=== PATIENT | female | born 1940 | race Caucasian/White ===

== ENCOUNTER 2023-10-26 09:02 | Inpatient (IN) | payer MEDICARE, OTHER ==
[~2023-10-26] VITALS: Ht 149.9 cm; Wt 84.4 kg
[2023-10-26] MEDS: CEFAZOLIN 2 G in IV DEXTROSE 5% 100 ML IV ONE (07:00)
[~2023-10-26 09:02] MED LIST: BUPIVACAINE/EPI PF 0.25% 10 ML VIAL IJ ONE; IV LACTATED RINGERS SOLUTION 1,000 ML IV PRN; LIDOCAINE HCL 1% 20 ML VIAL ONE
[2023-10-26] MEDS ORDERED: PROPOFOL 200 MG/20 ML BOTTLE ONE (09:35)
[2023-10-26 09:53] LABS: *BILIRUBIN,URIN NEGATIVE (NEGATIVE); *BLOOD, URINE NEGATIVE (NEGATIVE); *CLARITY,URINE CLEAR (CLEAR); *COLOR,URINE YELLOW (YELLOW); *KETONES,URINE NEGATIVE (NEGATIVE); *PROTEIN,URINE NEGATIVE (NEGATIVE); *UROBILINOGEN,URINE 0.2 E.U./dl (NORMAL); LEUKOCYTE ESTERASE ,URINE NEGATIVE (NEGATIVE); NITRITE, URINE NEGATIVE (NEGATIVE); UGLUCOSE NEGATIVE (NEGATIVE)
[2023-10-26] MEDS ORDERED: FENTANYL CITRATE 250 MCG/5 ML AMPUL ONE (10:35)
[2023-10-26] MEDS ORDERED: ROCURONIUM BROMIDE 50 MG/5 ML VIAL ONE (10:35)
[2023-10-26] MEDS ORDERED: FENTANYL CITRATE 100 MCG/2 ML AMPUL ONE (13:49)
[2023-10-26] MEDS ORDERED: ACETAMINOPHEN 325 MG TABLET ONE ×2 (13:56)
[2023-10-26] MEDS: GABAPENTIN 100 MG CAPSULE PO SCH (14:00)
[2023-10-26] MEDS: CELECOXIB 200 MG CAPSULE PO SCH (14:00)
[2023-10-26] MEDS: ACETAMINOPHEN 325 MG TABLET PO SCH (14:00)
[2023-10-26] MEDS ORDERED: LOSA1TAB36 PO (14:13)
[2023-10-26] MEDS ORDERED: ASPI-495 PO (14:13)
[2023-10-26] MEDS ORDERED: GABA300C PO (14:13)
--- NOTE | 2023-10-26 15:18 | NUR ---
Patient is alert, oriented x4, no sob, respirations are even nonlabored, skin warm and dry to touch, patient received from PACU, awake, no distress noted, daughter at bedside, dressing intact, and dry to abdomen, continue with plan of care.
--- NOTE | 2023-10-26 15:18 | NUR ---
those medications are administered in OR.
[2023-10-26 15:21] VITALS: BP 133/68; TEMP 97.8; O2SAT 99
[2023-10-26 15:30] VITALS: BP 130/65; TEMP 97.8; O2SAT 99
[2023-10-26] MEDS: MORPHINE SULFATE 4 MG/1 ML DISP.SYRIN IV PRN (15:57)
[2023-10-26 16:00] VITALS: BP 137/68; TEMP 97.6; O2SAT 96
[2023-10-26 16:06] VITALS: O2SAT 99
[2023-10-26] MEDS: IV LACTATED RINGERS SOLUTION 1,000 ML IV PRN (16:25)
[2023-10-26 17:19] VITALS: BP 128/65; TEMP 97.6; O2SAT 97
[2023-10-26 19:00] VITALS: BP 125/63; TEMP 98; O2SAT 95
[2023-10-26] MEDS ORDERED: REMEDY ESSENTIAL ZINC PASTE 113 GM TP PRN (19:00)
[2023-10-26] MEDS ORDERED: MAGNESIUM HYDROXIDE 30 ML LIQUID UDC PO PRN (19:00)
[2023-10-26] MEDS ORDERED: ZOLPIDEM 5 MG TABLET PO PRN (19:00)
[2023-10-26] MEDS ORDERED: ONDANSETRON 4 MG/2 ML VIAL IV PRN (19:00)
[2023-10-26] MEDS ORDERED: ACETAMINOPHEN 325 MG TABLET PO PRN (19:00)
[2023-10-26] MEDS ORDERED: HOME MED MISCELLANEOUS XX SCH (19:00)
[2023-10-26] MEDS: MORPHINE SULFATE 2 MG/1 ML DISP.SYRIN IV PRN (20:15)
[2023-10-27 05:08] VITALS: O2SAT 99
--- NOTE | 2023-10-27 05:47 | NUR ---
Patient slept well during the night. Morphine via IV given for pain and effective. Ice compress also provided. O2 at 2LPM via NC in place. Denies any SOB. Dressing on abdominal area intact. Other needs assessed and attended to. Safety measure maintained and call light within reached.
[2023-10-27 06:00] VITALS: BP 114/50; TEMP 97.5; O2SAT 96
[2023-10-27] MEDS: PANTOPRAZOLE SODIUM 40 MG TABLET.DR PO SCH (06:17)
[2023-10-27 07:05] LABS: BASOPHILS % (AUTO) 0.4 % (0.0-2.0); EOSINOPHILS # (AUTO) 0.1 K/uL (0.0-0.7); EOSINOPHILS % (AUTO) 0.5 % (0.0-7.0); HEMATOCRIT 39.1 % (31.2-41.9); HEMOGLOBIN 12.9 g/dL (10.9-14.3); LYMPHOCYTES # (AUTO) 2.5 K/uL (0.8-4.8); LYMPHOCYTES % (AUTO) 25.6 % (20.5-51.5); MEAN CORPUSCULAR HEMOGLOBIN 28.1 uug (24.7-32.8); MEAN CORPUSCULAR HGB CONC 33 g/dL (32.3-35.6); MEAN CORPUSCULAR VOLUME 85.3 fL (75.5-95.3); MONOCYTES # (AUTO) 0.8 K/uL (0.1-1.30); MONOCYTES % (AUTO) 8.5 % (0.0-11.0); NEUTROPHILS # (AUTO) 6.3 K/uL (1.8-8.9); PLATELET COUNT (AUTO) 224 K/uL (179-408); RED BLOOD CELL COUNT(AUTO) 4.59 MIL/uL (3.63-4.92); WHITE BLOOD COUNT (AUTO) 9.7 K/uL (3.8-11.8)
[2023-10-27 07:20] LABS: DIFFERENTIAL COMMENT 1
[2023-10-27 07:42] LABS: CALCIUM 8.3 mg/dL (8.5-10.1); CARBON DIOXIDE 28 mmol/L (21-32); CHLORIDE 100 mmol/L (98-107); CHOLESTEROL 151 mg/dL (<200); CREATININE 0.9 mg/dL (0.6-1.3); GLUCOSE 117 mg/dL (74-106); HDL CHOLESTEROL 63 mg/dL (40-60); MAGNESIUM 2.2 mg/dL (1.8-2.4); PHOSPHOROUS 4.7 mg/dL (2.5-4.9); POTASSIUM 3.8 mmol/L (3.5-5.1); SODIUM SERUM 136 mmol/L (136-145); TRIGLYCERIDES 68 MG/DL (30-150); UREA NITROGEN, BLOOD 14 mg/dL (7-18)
[2023-10-27 08:02] LABS: THYROID STIMULATING HORMONE 0.914 mIU/mL (0.358-3.740)
[2023-10-27] MEDS: LOSARTAN POTASSIUM 50 MG TABLET PO SCH (08:17)
[2023-10-27] MEDS: GABAPENTIN 300 MG CAPSULE PO SCH (08:17)
[2023-10-27] MEDS: HYDROCHLOROTHIAZIDE 12.5 MG CAPSULE PO SCH (08:17)
[2023-10-27 11:30] VITALS: BP 95/56; TEMP 97.8; O2SAT 96
[2023-10-27] MEDS ORDERED: ZOLP5TAB8 PO (11:56)
[2023-10-27] MEDS ORDERED: TRAM50TA2 PO (11:56)
[2023-10-27] MEDS ORDERED: DEXL60CA3 PO (11:56)
[2023-10-27] MEDS ORDERED: FLUT16SP16 EA NOSTRIL (11:56)
[2023-10-27] MEDS ORDERED: HYDR-894 PO (11:56)
[2023-10-27] MEDS ORDERED: CELE200C PO (11:56)
[2023-10-27] MEDS ORDERED: MEMA10TA PO (11:56)
[2023-10-27] MEDS: MEMANTINE HCL 10 MG TABLET PO SCH (14:30)
[2023-10-27 16:35] VITALS: BP 136/52; TEMP 97.9; O2SAT 97
[2023-10-27 17:23] VITALS: O2SAT 99
[2023-10-27 19:00] VITALS: BP 141/66; TEMP 98.1; O2SAT 98
--- NOTE | 2023-10-27 19:45 | NUR ---
Received patient lying in bed, using her incentive spirometer. AAOx4. In no acute distress. Denies any SOB. On O2 at 2LPM via NC in place. Complain of abd pain 5/10, will provide Rex per order. Abd. dressing remains intact and patent. Other needs assessed and attended to. Safety measure initiated and call light within reached.
[2023-10-27] MEDS: HYDROCODONE/APAP 5-325MG TABLET PO PRN (19:55)
--- NOTE | 2023-10-28 05:08 | NUR ---
Slept well during the night. Hydrocodone given for complain of mild abd. pain and effective. O2 at 2LPM via NC in place. Denies any SOB. Needs assessed and attended to. Safety measure maintained and call light within reached.
[2023-10-28 06:00] VITALS: BP 127/85; TEMP 97.9; O2SAT 98
--- NOTE | 2023-10-28 06:31 | NUR ---
Taper O2 at 1LPM via NC, patient O2 sat at 97%. Denies any SOB or dyspnea.
[2023-10-28 08:09] VITALS: BP 127/85
--- NOTE | 2023-10-28 11:05 | NUR ---
dc orders received noted and carried out,dc instruction and education given to the pt and her daughter,pt said she will follow up with the surgeon in two weeks,pt left the facility via private car in stable condition
[2023-10-28] MEDS ORDERED: HYDR-3972 PO (13:26)
[2023-10-28] MEDS ORDERED: GABA300C PO (13:26)
[2023-10-28] MEDS ORDERED: CELE200C PO (13:26)
[2023-10-28] MEDS ORDERED: ACET325C7 PO (13:26)
== END 2023-10-28 11:15 | disposition home health service (06) | DRG 337 ==
LOC: DS 09:02 → MEDSURG3 15:00
PROVIDERS: ADMIT Nurse Practitioner Acute Care; ATTEND Nurse Practitioner Acute Care
PROC: 0WUF0JZ Supplement Abdominal Wall with Synthetic Substitute, Open Approach (ICD-10-PCS; principal; 2023-10-26)
PROC: 0DNU0ZZ Release Omentum, Open Approach (ICD-10-PCS; 2023-10-26)
PROC: 0WJF4ZZ Inspection of Abdominal Wall, Percutaneous Endoscopic Approach (ICD-10-PCS; 2023-10-26)
DX: K43.2 Incisional hernia without obstruction or gangrene (principal); K66.0 Peritoneal adhesions (postprocedural) (postinfection); E66.9 Obesity, unspecified; Z68.37 Body mass index [BMI] 37.0-37.9, adult; I10 Essential (primary) hypertension; F03.90 Unspecified dementia, unspecified severity, without behavioral disturbance, psychotic disturbance, mood disturbance, and anxiety
CPT/HCPCS: 36415; 71045; 83735; 84100; 84443; 85025; A4649; A4663; C1781; G0378; J0690; J2270; J3010; J3490; J7120